=== PATIENT | female | born 1950 | race Hispanic/Latino ===

== ENCOUNTER 2019-03-14 11:44 | Outpatient (CLI) | payer BC, MEDICARE ==
--- NOTE | 2019-03-14 12:46 | MRI ---
MR the lumbar spine without contrast INDICATION: Long-standing back pain for over 2 years with left lower extremity pain and numbness COMPARISON: None. TECHNIQUE: Multiplanar multisequence MR images were obtained of lumbar spine without IV contrast. FINDINGS: Bone marrow: There is prominent Modic endplate degenerative change at L3-4 and L1-L2. Distal spinal cord and conus: Normal. The conus seen to terminate at T12-L1. Visualized retroperitoneum and paraspinal soft tissues: Normal. Vertebral levels: L5-S1: Moderate bilateral facet joint degenerative change. No appreciable central canal or neural for aminal narrowing.. L4-5: Asymmetric to the left broad-based disc bulge with moderate right and mild left facet joint deg enerative change. There is mild left neural foraminal narrowing. L3-4: Asymmetric to the left broad-based disc bulge with facet hypertrophy induces mild to moderate l eft neural foraminal narrowing. There is mild central canal narrowing at this level due to the broad-based disc bulge and facet hypertrophy. L2-3: Broad-based disc bulge with facet hypertrophy without appreciable central canal or neural hammad inal narrowing. L1-L2: Broad-based disc bulge with facet hypertrophy with mild right neural foraminal narrowing T12-L1: Broad-based disc bulge with facet hypertrophy but no appreciable central canal or neural fora adi narrowing. IMPRESSION: 1. Mild central canal narrowing with mild to moderate left neural foraminal narrowing at L3-4. 2. Mild left neural foraminal narrowing at L4-5. 3. Mild right neural foraminal narrowing at L1-L2.
== END 2019-03-14 11:45 | disposition home or self-care (01) ==
LOC: SCSMRI 11:44
PROVIDERS: ATTEND Anesthesiology Pain Medicine
DX: M47.816 Spondylosis without myelopathy or radiculopathy, lumbar region (principal); M48.061 Spinal stenosis, lumbar region without neurogenic claudication
CPT/HCPCS: 72148

== ENCOUNTER 2020-05-10 13:06 | Outpatient (CLI) | payer MEDICARE ==
--- NOTE | 2020-05-10 14:13 | RAD ---
Exam: Lumbar spine 4 views HISTORY: Low back pain. Degenerative Disc disease. FINDINGS: 5 lumbar type vertebra. Mild leftward curvature the upper lumbar spine. Visualized sacrum and bony pe lvis are intact Severe degenerative change at the L1-L2 level. Moderate to severe degenerative change at L3-L4. There is vacuum disc phenomenon at L3-L4. In the neutral position, there is straightening of lumbar lordosis. No abnormal motion upon extension or flexion IMPRESSION: Severe degenerative change at L1-L2. Moderate to severe degenerative change at L3-L4
--- NOTE | 2020-05-10 14:24 | MRI ---
MRI lumbar spine noncontrast: HISTORY: Low back pain. COMPARISON: 03/14/2019 FINDINGS: Stable heterogeneous signal intensity of the lumbar vertebra compatible with mild senescent change, t ype I and type II Modic changes at L1-L2 and L2-L3. Stable Schmorl's nodes along the inferior endplate of L1, inferior endplate of L2, inferior endplate of L3 and superior endplate of L4. There i s no evidence of vertebral body fracture. There is no significant STIR hyperintensity to suggest ligamentous injury or vertebral body edema from fracture. There is STIR hyperintensity involving the left lamina and facet at L3-L4, right lamina and facet at L1-L2. Stress reaction/inflammatory arthropathy changes are suspected. Appropriate signal intensity of the visualized paraspinal muscles and solid organs. Conus medullaris terminates at the mid T12 level T12-L1:Disc desiccation with mild loss of disc space height. Left and right paracentral disc bulge. M ild central canal stenosis. Mild bilateral neural foraminal narrowing. L1-L2:Desiccation with severe loss of disc space height. Broad-based disc bulge abuts the thecal sac. Mild central canal stenosis. Moderate right and mild left neural foraminal narrowing. L2-L3:Disc desiccation with mild loss of disc space height. Broad-based disc bulge, ligamentum flavum thickening and facet hypertrophy result in moderate central canal stenosis. Mild right neural foraminal narrowing. Patent left neural foramen. L3-L4:Disc desiccation with mild loss of disc space height. Broad-based disc bulge, ligamentum flavum thickening and facet hypertrophy result in moderate central canal stenosis. There is narrowing of the left subarticular zone with partial obscuration of the traversing left L4 nerve root. There is fl uid in the right facet joint. Mild to moderate right and moderate to severe left neural foraminal narrowing. L4-L5:Disc desiccation without significant loss of disc space height. Broad-based disc bulge abuts th e thecal sac. There is ligamentum flavum thickening and facet hypertrophy. Mild central canal stenosis. Moderate to severe bilateral neural foraminal narrowing. L5-S1:Adequate disc hydration. No significant central canal stenosis or significant neural foraminal narrowing. There is bilateral facet hypertrophy. IMPRESSION: 1. Redemonstration of multilevel degenerative changes of the lumbar spine. There is type I and type I I Modic changes at L1-L2 and L3-L4. Reactive changes of the posterior elements versus inflammatory arthropathy is noted. 2. Redemonstration of varying degrees of central canal stenosis, foraminal narrowing as detailed abov e. There is multilevel facet hypertrophy with fluid in the facet joints. Transcribed Date/Time: 05/10/2020 2:53 PM
== END 2020-05-10 13:07 | disposition home or self-care (01) ==
LOC: TBSIIMAG 13:06
PROVIDERS: ATTEND Neurological Surgery
DX: M51.36 Other intervertebral disc degeneration, lumbar region (principal); M54.5 Low back pain; M47.816 Spondylosis without myelopathy or radiculopathy, lumbar region; M48.061 Spinal stenosis, lumbar region without neurogenic claudication
CPT/HCPCS: 72120; 72148

== ENCOUNTER 2020-05-17 12:07 | Outpatient (CLI) | payer MEDICARE ==
--- NOTE | 2020-05-17 12:31 | RAD ---
Exam:4 views left knee HISTORY: Pain. Previous meniscus surgery. COMPARISON: None FINDINGS: Small joint effusion Preserved patellofemoral and lateral joint spaces. Mild narrowing of the medial compartment No fracture or malalignment. IMPRESSION: Mild degenerative change involving the medial compartment.
== END 2020-05-17 12:08 | disposition home or self-care (01) ==
LOC: SCSRAD 12:07
PROVIDERS: ATTEND Family Medicine
DX: M25.562 Pain in left knee (principal); M17.12 Unilateral primary osteoarthritis, left knee

== ENCOUNTER 2021-11-17 09:37 | Outpatient (CLI) | payer MEDICARE | END 2021-11-17 09:38 | disposition home or self-care (01) | LOC: SCSRAD 09:37 | PROVIDERS: ATTEND Family Medicine | DX: M54.6 Pain in thoracic spine (principal) | CPT/HCPCS: 71046 ==

== ENCOUNTER 2023-02-23 10:22 | Outpatient (CLI) | payer MEDICARE | END 2023-02-23 10:23 | disposition home or self-care (01) | LOC: SCSMRI 10:22 | PROVIDERS: ATTEND Anesthesiology Pain Medicine | DX: M47.26 Other spondylosis with radiculopathy, lumbar region (principal); M51.16 Intervertebral disc disorders with radiculopathy, lumbar region; M47.817 Spondylosis without myelopathy or radiculopathy, lumbosacral region | CPT/HCPCS: 72120; 72148 ==